=== PATIENT | female | born 1980 | race Native Hawaiian/Other Pacific Islander ===

== ENCOUNTER 2019-03-26 18:00 | Emergency (ER) | payer OTHER ==
[2019-03-26 18:11] VITALS: BMI 31.7
--- NOTE | 2019-03-26 18:22 | OBHP ---
Datetime: 03/26/2019 18:17 IP Adm Impression: Term, intrauterine Admit Comment, IP Provider: at 39+we came with c/o dec fm from 1 week,no vb, lof. obhx primi pmh de med pmnv all nks psh de soch de ve2/60/-3 a/p at 39+we dec fm bpp cont jillian and efm cont close observation Pelvic Type - PN: Adequate Extremities - PN: Normal Abdomen - PN: Normal Back - PN: Normal Breast - PN: Normal Lungs - PN: Normal Heart - PN: Normal Thyroid - PN: Normal Neurologic - PN: Normal HEENT - PN: Normal General - PN: Normal FHR - Baseline A Provider: 130 Contraction Comments Provider: irrg IP Hx Assessment: The History has been Reviewed and is Current EGA AdmitDate IP: 39.2 Vital Signs Provider: Reviewed; Within Normal Limits IP Chief Complaint: Decreased movement NICHD Variability Prov Fetus A: Moderate 6-25bpm NICHD Accel Fetus A IP Provider: 15X15 Dilatation, Provider: 2 Effacement, Provider: 60 Station, Provider: -2 Genitourinary Exam: Normal DTRs - PN: Normal
--- NOTE | 2019-03-26 21:06 | OBDCSUM ---
Datetime: 03/26/2019 20:50 Discharged to, Provider: Home Follow up at, Provider: Dr. Bryant Disch Instr Activity: Normal activity Disch Instr Diet: Regular Discharge Time: 03/26/2019 21:00 Follow up in weeks, Provider: 03/31/2019 Disch Referrals: None Discharge Comment, Provider: dc home labor g po hy f/u Discharge Diagnosis Prov Other: 39we decd fm nst
[2019-03-27 01:30] VITALS: BP 112/70; PULSE 88; TEMP 97.8
--- NOTE | 2019-03-27 10:11 | US ---
Date of service: 03/26/2019 PROCEDURE: Obstetrical ultrasound examination HISTORY: oct COMPARISON: Not available TECHNIQUE: Transabdominal FINDINGS: The examination demonstrates a single live intrauterine gestation in cephalic presentation. The heart rate is 138 beats per minute. A normal quantity of amniotic fluid is visualized. A normal anterior placenta is identified. There is no evidence of placenta previa. The cervix measures 2.9 cm in length and is closed. biometry yields a gestational age of 36 weeks 5 days. The TENISHA by ultrasound is 04/18/2019. The EFW is 3163 g. Limited review of anatomy demonstrates fluid distending the stomach and urinary bladder. Two normal kidneys are demonstrated without evidence of hydronephrosis. A 4 chamber heart is demonstrated. No gross abnormality of the spine is evident. Limited biophysical profile examination yields a score of 8 out of 8. IMPRESSION: Single live intrauterine gestation of approximately 36 weeks 5 days gestational age. Cephalic presentation. Cervix long and closed. Anterior placenta. No previa. Normal amniotic fluid volume. EFW 3163 g. Biophysical profile score 8 out of 8. The preliminary findings for this examination were reported by [facility] at 8:48 p.m. on 03/26/2019. There is concurrence of this report with the preliminary findings.
--- NOTE | 2019-03-28 13:58 | OBHP ---
Datetime: 03/26/2019 18:17 Admit Comment, IP Provider: at 39+we came with c/o dec fm from 1 week,no vb, lof. obhx primi pmh de med pmnv all nks psh de soch de ve260/-3 a/p at 39+we dec fm bpp cont jillian and efm cont close observation bpp 8/8 ve 60/-2 plan dc home labor g po hy f/u
== END 2019-03-26 21:00 | disposition home or self-care (01) ==
LOC: C.EROB 18:00
DX: O36.8130 Decreased fetal movements, third trimester, not applicable or unspecified (principal); Z3A.36 36 weeks gestation of pregnancy

== ENCOUNTER 2019-03-27 03:29 | Inpatient (IN) | payer OTHER | END 2019-03-30 12:38 | disposition home or self-care (01) | LOC: C.4M 03-28 02:17 → C.EROB 03:29 → C.4M 03-28 02:30 → C.4D 04:28 ==

== ENCOUNTER 2019-04-03 22:37 | Emergency (ER) | payer OTHER ==
[2019-04-03 22:37] VITALS: BMI 31.7
[2019-04-03 22:48] VITALS: BP 119/79; PULSE 103; RESP 20; TEMP 98.2; O2SAT 98
--- NOTE | 2019-04-03 23:13 | C.PDOC ---
History Of Present Illness 39 year old female presents to the ED for evaluation of wound check. Patient recently had done, today she noticed wound opened up and saw some blood. Patient denies fever, chills, abdominal pain, other complaints. Time Seen by Provider: 04/03/19 23:03 Chief Complaint (Nursing): Wound Check History Per: Patient History/Exam Limitations: no limitations Onset/Duration Of Symptoms: Hrs Current Symptoms Are (Timing): Still Present Location Of Injury: Anterior: Abdomen Quality Of Symptoms: Draining Recent travel outside of the [place]: No Additional History Per: Patient Past Medical History Reviewed: Historical Data, Nursing Documentation, Vital Signs Vital Signs: Last Vital Signs Temp 98.2 F 04/03/19 22:45 Pulse 103 H 04/03/19 22:45 Resp 20 04/03/19 22:45 BP 119/79 04/03/19 22:45 Pulse Ox 98 04/03/19 22:45 Primary Care Provider: Norma Bryant - Medical History PMH: No Chronic Diseases Denies: Depression, Diabetes, HTN Surgical History: - [facility] EXTRACTION OF POC, LOW CERVICAL, OPEN APPROACH (03/27/19) Family History: States: Unknown Family Hx - Social History Hx Alcohol Use: No Hx Substance Use: No Review Of Systems Constitutional: Negative for: Fever, Chills, Weakness ENT: Negative for: Mouth Swelling Gastrointestinal: Negative for: Vomiting, Abdominal Pain, Diarrhea Musculoskeletal: Negative for: Back Pain Skin: Positive for: Other ( scar). Negative for: Rash Neurological: Negative for: Weakness, Numbness, Headache, Dizziness Physical Exam - Physical Exam Appears: Well, Non-toxic, No Acute Distress Skin: Normal Color, Warm, Dry Head: Atraumatic, Normacephalic Eye(s): bilateral: Normal Inspection, PERRL, EOMI Neck: Normal ROM, Supple Gastrointestinal/Abdominal: Soft, No Distention, Other (wound dehiscence with serous fluid. No active bleeding, purulent discharge, surrounding eyrthemam signs of infection.) Extremity: Normal ROM (x4) Neurological/Psych: Oriented x3, Normal Speech ED Course And Treatment O2 Sat by Pulse Oximetry: 98 (ON RA) Pulse Ox Interpretation: Normal Medical Decision Making Medical Decision Making: Reassured patient, educated on proper wound care management and advised to follow up with PMD/OB. Disposition Counseled Patient/Family Regarding: Diagnosis, Need For Followup - Disposition Disposition: HOME/ ROUTINE Disposition Time: 23:12 Condition: STABLE Instructions: Wound Dehiscence Forms: [facility] (Welsh), General Discharge Instructions - Clinical Impression Clinical Impression: Wound dehiscence, , condition - PA / V[employer]CH[employer]IC / Resident Statement MD/DO has reviewed & agrees with the documentation as recorded. - Scribe Statement The provider has reviewed the documentation as recorded by the Scribe Vitor Shelton All medical record entries made by the Tobyibfarrukh were at my direction and personally dictated by me. I have reviewed the chart and agree that the record accurately reflects my personal performance of the history, physical exam, medical decision making, and the department course for this patient. I have also personally directed, reviewed, and agree with the discharge instructions and disposition.
== END 2019-04-03 23:30 | disposition home or self-care (01) ==
LOC: C.ER 22:37
DX: O90.0 Disruption of cesarean delivery wound (principal)